=== PATIENT | female | born 1950 | race Caucasian/White ===

== ENCOUNTER → 2018-03-04 | Outpatient (CLI) | payer MEDICARE ==
[~2018-03-04] MED LIST: CONTRAST GIVEN. MC PRN; IOHEXOL 240 MG/ML 50ML VIAL. PO ONE; IOHEXOL 300 MG/ML 100ML VIAL. IV ONE
--- NOTE | 2018-03-04 11:26 | RAD ---
CT abdomen with contrast 03/04/2018 CLINICAL INDICATION: Epigastric pain. COMPARISON: CT abdomen and pelvis 10/26/2008. TECHNIQUE: Multiple CT images of the abdomen were obtained following the intravenous and ministration of 75 mL Omnipaque 300. *One or more of the following individualized dose reduction techniques were utilized for this examination: 1. Automated exposure control. 2. Adjustment of the mA and/or kV according to patient size. 3. Use of iterative reconstruction technique. FINDINGS: Heart size is normal. Minimal atelectasis or scarring in the visualized lung bases. Liver, spleen, adrenal glands, pancreas and kidneys are unremarkable. Abdominal aorta is normal in caliber. Major portal veins are patent. No abdominal lymphadenopathy or free fluid. There is retained or reflux oral contrast in the lower esophagus. Postsurgical changes of a gastric sleeve. Visualized small large bowel loops of the abdomen are normal in caliber. There are no destructive osseous lesions. IMPRESSION: 1. Postsurgical changes of a gastric sleeve without evidence of leak or obstruction. 2. Retained or reflux oral contrast in the lower esophagus. Electronically signed by: Blayne Ochoa MD (03/04/2018 11:22 AM) [id number]
== END | disposition home or self-care (01) ==
LOC: CT 08:14
PROVIDERS: ATTEND Internal Medicine Gastroenterology
DX: R10.13 Epigastric pain (principal)
CPT/HCPCS: 74160; Q9966; Q9967